=== PATIENT | male | born 1985 | race Caucasian/White ===

== ENCOUNTER 2021-02-07 14:35 | Emergency (ER) | payer OTHER, SELFPAY ==
--- NOTE | ~2021-02-07 | XR_ITS ---
EXAMINATION: XR finger 2nd RT min 2V DATE: 02/07/2021 15:07 INDICATION: Right hand second digit injury and pain. TECHNIQUE: 3 views of right hand second digit were obtained. COMPARISON: None. FINDINGS: Bone alignment is normal. No fracture. Joint spaces are well maintained. IMPRESSION: 1. No fracture. Reviewed, dictated and finalized at location A. CUTTER IMPRESSION: 1. No fracture.
[2021-02-07 14:53] VITALS: BP 111/70; PULSE 71; RESP 18; TEMP 37; O2SAT 100
--- NOTE | 2021-02-07 15:15 | ED.GENADULT ---
HPI - General Adult General Chief complaint: Extremity Injury, Upper Stated complaint: Finger Pain Source: patient Mode of arrival: ambulatory Limitations: no limitations History of Present Illness HPI narrative: Patient is a 35-year-old male who presents to the [facility] via POV for evaluation of a right index finger injury that occurred last night at approximately 930. Patient states he was playing pool when he accidentally smashed his right index finger between the pool stick and the pool table. He reports his finger is aching. Ibuprofen and Tylenol provide minimal relief. All movement worsens pain. Denies rest, ice, elevation, and compression therapy. Related Data Home Medications Medication Instructions Recorded Confirmed gabapentin 600 mg PO DAILY 02/07/21 02/07/21 Allergies Allergy/AdvReac Type Severity Reaction Status Date / Time No Known Allergies Allergy Verified 02/07/21 15:02 Review of Systems Review of Systems: Pertinent negatives: fever, chills, sweats, change in appetite, poor p.o. intake, malaise, rash, warmth, swelling, numbness, tingling, loss of sensation, deformity, decreased range of motion, weakness, difficulty with ambulation/coordination, nausea, vomiting, lymphadenopathy, shortness of breath, chest pain, heart palpitations, and heart murmur. [facility] Past Medical History Medical History (Updated 02/07/21 @ 15:43 by LUCIA Loza, ) Neuropathy Comments I have reviewed and agree with the patient's past medical, surgical, social, and family hx as documented by the RN. There is no relevant family history pertinent to the presenting complaint. Exam Narrative: GENERAL: Well-appearing, well-nourished, and in no acute distress. HEAD: Normocephalic, atraumatic. NECK: Supple. No Lymphadenopathy or nuchal rigidity appreciated. CHEST: Bilateral lung vincent are clear to auscultation. No respiratory distress. No evidence of cough or pleuritic cp upon examination. HEART: Regular rate and rhythm. No murmur, gallop, or rub heard. EXTREMITIES: Moderate generalized pain elicited to right index finger with all active and passive ROM. Small contusion noted to right index finger. No evidence of decreased ROM, swelling, cyanosis, laceration, abrasion, deformity, rash, or puncture. No evidence of dislocation, ligament laxity, effusion, or pain at rest. Pulses palpable at 2+, strength 5/5, and cap refill < 3 seconds in affected extremity. DTRs normal. Gait normal. SKIN: Warm, dry, no rash. NEURO: No focal deficits. Alert and oriented x3. SPECIAL OBSERVATIONS: Smiling. Laughing. Course Vital Signs Vital signs: Vital Signs Temperature 98.6 F 02/07/21 14:53 Pulse Rate 71 02/07/21 14:53 Respiratory Rate 18 02/07/21 14:53 Blood Pressure 111/70 02/07/21 14:53 Pulse Oximetry 100 02/07/21 14:53 Temperature 98.6 F 02/07/21 14:53 Pulse Rate 71 02/07/21 14:53 Respiratory Rate 18 02/07/21 14:53 Blood Pressure 111/70 02/07/21 14:53 Pulse Oximetry 100 02/07/21 14:53 Medical Decision Making Differential Diagnosis Differential Diagnosis: Sprain, strain, cellulitis, open fracture, closed fracture, gout Medical Records Medical records reviewed: Yes I reviewed the external patient's medical records. Vital Signs Vital Signs: Vital Signs Temperature 98.6 F 02/07/21 14:53 Pulse Rate 71 02/07/21 14:53 Respiratory Rate 18 02/07/21 14:53 Blood Pressure 111/70 02/07/21 14:53 Pulse Oximetry 100 02/07/21 14:53 Temperature 98.6 F 02/07/21 14:53 Pulse Rate 71 02/07/21 14:53 Respiratory Rate 18 02/07/21 14:53 Blood Pressure 111/70 02/07/21 14:53 Pulse Oximetry 100 02/07/21 14:53 Reviewed Imaging Data Attestation: I personally reviewed and interpreted this imaging study as follows: My impression: Negative Radiologist's impression: Impression: No fracture Critical Care Time Critical Care Time Critical Care Time: No Dischar
== END 2021-02-07 15:42 | disposition home or self-care (01) ==
PROVIDERS: Emergency Provider Nurse Practitioner Family; PCP Family Medicine
DX: S69.81XA Other specified injuries of right wrist, hand and finger(s), initial encounter (principal); X58.XXXA Exposure to other specified factors, initial encounter; G62.9 Polyneuropathy, unspecified
CPT/HCPCS: 73140; 99203; G0463

== ENCOUNTER 2023-04-17 19:54 | Emergency (ER) | payer OTHER, SELFPAY ==
--- NOTE | ~2023-04-17 | XR_ITS ---
XR shoulder RT min 2V 04/18/2023 00:55 INDICATION: Right shoulder pain after fall PROCEDURE: 4 views right shoulder COMPARISON: No prior studies for comparison. FINDINGS: Fracture, dislocation or subluxation is not identified. The soft tissues appear within norm al limits. No foreign bodies are identified. IMPRESSION: 1: NO ACUTE BONE OR JOINT ABNORMALITY IDENTIFIED. Reviewed, dictated and finalized at location A. ZINE WORKER
--- NOTE | ~2023-04-17 | CT_ITS ---
EXAMINATION: CT cervical spine wo con DATE: 04/18/2023 00:25 INDICATION: Status post fall. Neck pain. TECHNIQUE: Computed tomography (CT) of the cervical spine was performed without intravenous contrast. The dose-length product was 207 mGy-cm. Automated exposure control and iterative reconstruction tech nique were employed. COMPARISON: None FINDINGS: There is reversal of cervical lordosis. Craniovertebral junction is normal. Odontoid proces s is normal. Lateral masses normally aligned. Reversal of cervical lordosis centered at C4-5 which ma y be due to muscle spasm. Mild wedge-shaped appearance to C5 which appears chronic or developmental. No evidence for perched facet. Spinous processes are normal. Craniovertebral junction is normal. Macclenny toid process is normal. Mild dextrocurvature of the cervical spine. Lung apices are normal. No signif icant soft tissue abnormality. IMPRESSION: 1. No acute abnormality of the cervical spine. Reviewed, dictated and finalized at location A. IT OPERATIONS PROCESSOR
--- NOTE | ~2023-04-17 | CT_ITS ---
EXAMINATION: CT BRAIN W/O DATE: 04/18/2023 00:25 INDICATION: Status post fall. Head injury. TECHNIQUE: Computed tomography (CT) of the head was performed without intravenous contrast. The dose- length product was 756.00 mGy-cm. Automated exposure control and iterative reconstruction technique w ere employed. COMPARISON: No prior studies for comparison. FINDINGS: Normal brain parenchymal volume for age. Normal mantilla-white differentiation. No acute intrac ranial hemorrhage, infarction, mass or mass effect. There is disconjugate gaze. No ventriculomegaly or midline shift. Midline sagittal images demonstrate a normal corpus callosum, c raniovertebral junction and sella turcica. Basilar cisterns are patent. Paranasal sinuses and mastoids are pneumatized. There is a mucous retention cyst partially visualized left maxillary sinus. No depressed skull fractures. IMPRESSION: 1. No acute intracranial abnormality. 2: Disconjugate gaze. Reviewed, dictated and finalized at location A. S CLERK [employer]ANT MAINTENANCE
[2023-04-17 19:57] VITALS: BP 146/86; PULSE 86; RESP 15; TEMP 36.6; O2SAT 100
--- NOTE | 2023-04-17 21:43 | PC.NURSE ---
Patient walks out of waiting room to leave without seeing provider.
--- NOTE | 2023-04-17 23:38 | ED.FALL ---
HPI - Fall General Chief Complaint: Fall Stated Complaint: fall out of bed, shoulder pain Time Seen by Provider: 04/17/23 22:36 History of Present Illness HPI Narrative: 37-year-old male reports for evaluation after fall that occurred last night. Patient states around 2:30 a.m., he was getting out of his bed to go to the bathroom. States his feet got tangled up in the blankets and he fell, hitting his forehead on the ground. States he did not lose consciousness. He woke up went to the bathroom is normal. Patient states around 12:00 p.m. today, he began developing weakness in his right arm and reports difficulty lifting up his arm. States he had some tingling in the lateral aspect of his upper arm as well which is improving. 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 He denies lower extremity weakness or facial weakness or numbness. States he had headache with associated dizziness earlier today which has since resolved. Her back pain, other injuries acquired from the fall. Related Data Home Medications Medication Instructions Recorded Confirmed gabapentin 600 mg tablet 600 mg PO DAILY 02/07/21 02/07/21 Allergies Allergy/AdvReac Type Severity Reaction Status Date / Time No Known Allergies Allergy Verified 04/17/23 20:02 Review of Systems Review of Systems: CONSTITUTIONAL: Denies fever, chills, or sweats. EYES: Denies visual changes, redness, or discharge. ENT: Denies rhinorrhea, congestion, sore throat, or otalgia. CARDIOVASCULAR: Denies chest pain, palpitations, or edema. RESPIRATORY: Denies cough or dyspnea. GASTROINTESTINAL: Denies abdominal pain, nausea, vomiting, or diarrhea. GENITOURINARY: Denies dysuria or hematuria. SKIN: Denies rash or itching. MUSCULOSKELETAL: See HPI NEUROLOGIC: See HPI PSYCHIATRIC: Denies anxiety or depression. [facility] Past Medical History Medical History Neuropathy Exam Narrative: GENERAL: Well-appearing, well-nourished, and in no acute distress. HEAD: Normocephalic. Mild area of erythema with tenderness to the forehead just above the left eyebrow. No hematoma, laceration or abrasion. EYES: PERRLA and EOMI. ENT: Nares clear, no rhinorrhea or epistaxis. Mucous membranes moist. NECK: Supple. No midline cervical spinous tenderness, step-offs or deformities. BACK: No thoracolumbar spinous tenderness, step-offs or deformities. CHEST: Clear to auscultation. No respiratory distress. HEART: Regular rate and rhythm. No murmur heard. Normal peripheral pulses. ABDOMEN: Soft, nontender, nondistended, normal active bowel sounds. EXTREMITIES: LUE: No tenderness to left shoulder. Full passive ROM. Limited abduction with active ROM. 4/5 strength with shoulder abduction and anterior flexion. 5/5 strength with elbow flexion and extension, college instructor strength. Sensation intact throughout. Median, radial and ulnar nerves are intact. Patient able to perform lift-off test without difficulty. Positive empty can sign. Positive Neer's. SKIN: Warm, dry, no rash. NEURO: No focal deficits. Alert and oriented x3. Cranial nerves 2-12 intact. See extremity exam for left upper extremity strength, otherwise 5/5 on throughout. Sensation intact throughout. Normal [id number]. No pronator drift. Course Vital Signs Vital signs: Vital Signs Temperature 97.9 F 04/17/23 19:57 Pulse Rate 86 04/17/23 19:57 Respiratory Rate 15 04/17/23 19:57 Blood Pressure 146/86 H 04/17/23 19:57 Pulse Oximetry 100 04/17/23 19:57 Oxygen Delivery Room Air 04/17/23 19:57 Temperature 97.9 F 04/17/23 19:57 Pulse Rate 86 04/17/23 19:57 Respiratory Rate 15 04/17/23 19:57 Blood Pressure 146/86 H 04/17/23 19:57 Pulse Oximetry 100 04/17/23 19:57 Oxygen Delivery Room Air 04/17/23 19:57 MDM - Fall MDM Narrative Medical decision making narrative: 37-year-old male present
[2023-04-17] MEDS: ACETAMINOPHEN 500 MG TABLET 1000 MG PO (23:52)
[2023-04-18 02:49] VITALS: BP 119/78; PULSE 70; RESP 18; O2SAT 100
== END 2023-04-18 02:49 | disposition home or self-care (01) ==
PROVIDERS: Emergency Provider Physician Assistant; PCP Family Medicine
DX: S09.90XA Unspecified injury of head, initial encounter (principal); M25.511 Pain in right shoulder; G62.9 Polyneuropathy, unspecified; W06.XXXA Fall from bed, initial encounter
CPT/HCPCS: 70450; 72125; 73030; 99284; A9270